=== PATIENT | female | born 1955 | race American Indian/Alaskan Native ===

== ENCOUNTER 2017-02-15 02:21 | Observation (INO) | payer MEDICARE, MEDICAID ==
[2017-02-15 02:27] VITALS: BMI 28.3
[2017-02-15] MEDS ORDERED: Morphine 2 mg/ml ISec IVP STA (02:39)
[2017-02-15] MEDS ORDERED: Sodium Chloride 0.9% 1,000 ML IV STA ×2 (02:39→05:35)
[2017-02-15] MEDS ORDERED: Pantoprazole 40 MG in Sodium Chloride 0.9% 100 ML IV STA (02:39)
--- NOTE | 2017-02-15 02:43 | ED PDOC ---
Arrival/HPI - General Chief Complaint: Abdominal Pain Time Seen by Provider: 02/15/17 02:22 Historian: Patient - History of Present Illness Narrative History of Present Illness (Text): 02/15/17 02:39 Victorina Gaitan is a 61 year old female, whose past medical history includes CVA with residual right sided weakness, who presents to the Emergency department complaining of RUQ pain for the few days with associated nausea. Patient denies any fever, chills, chest pain, shortness of breath, vomiting, diarrhea, urinary symptoms, back pain, neck pain, headache, dizziness, or any other complaints. Time/Duration: Other (few days) Symptom Onset: Gradual Symptom Course: Unchanged Activities at Onset: Rest, Light Context: Home Past Medical History - Provider Review Nursing Documentation Reviewed: Yes - Reproductive Menopause: Yes - Cardiac Hx Cardiac Disorders: No - Pulmonary Hx Respiratory Disorders: No - Neurological HX Cerebrovascular Accident: Yes (right arm contracted) - HEENT Hx HEENT Disorder: No - Renal Hx Renal Disorder: No - Endocrine/Metabolic Hx Endocrine Disorders: No - Hematological/Oncological Hx Blood Disorders: No - Integumentary Hx Dermatological Disorder: No - Musculoskeletal/Rheumatological Hx Musculoskeletal Disorders: No - Gastrointestinal Hx Gastrointestinal Disorders: No - Genitourinary/Gynecological Hx Genitourinary Disorders: No - Psychiatric Hx Psychophysiologic Disorder: No Hx Substance Use: No - Anesthesia Hx Anesthesia: No Family/Social History - Physician Review Nursing Documentation Reviewed: Yes Family/Social History: No Known Family HX Smoking Status: Never Smoked Hx Alcohol Use: No Hx Substance Use: No Allergies/Home Meds Allergies/Adverse Reactions: Allergies No Known Allergies Allergy (Verified 02/15/17 02:27) Home Medications: Home Meds Medication Instructions Recorded Confirmed Acyclovir 400 mg PO BID 02/15/17 02/15/17 Atazanavir [Reyataz] 200 mg PO BID 02/15/17 02/15/17 Docusate Sodium [Dok] 100 mg PO BID 02/15/17 02/15/17 Escitalopram [Lexapro] 10 mg PO DAILY 02/15/17 02/15/17 Gabapentin [Neurontin] 100 mg PO TID 02/15/17 02/15/17 Latanoprost 1 drop OU DAILY 02/15/17 02/15/17 Lisinopril [Zestril] 20 mg PO DAILY 02/15/17 02/15/17 Melatonin 5 mg PO HS 02/15/17 02/15/17 Truvada 200 MG-300 MG 200 mg PO DAILY 02/15/17 02/15/17 traZODone 50 mg PO DAILY 02/15/17 02/15/17 Review of Systems - Physician Review All systems were reviewed & negative as marked: Yes - Review of Systems Constitutional: Normal. absent: Fevers Eyes: Normal ENT: Normal Respiratory: Normal. absent: SOB, Cough Cardiovascular: Normal. absent: Chest Pain Gastrointestinal: Abdominal Pain, Nausea. absent: Diarrhea, Vomiting Genitourinary Female: Normal. absent: Dysuria, Frequency, Hematuria, Urine Output Changes Musculoskeletal: Normal. absent: Back Pain, Neck Pain Skin: Normal Neurological: Normal Endocrine: Normal Hemo/Lymphatic: Normal Psychiatric: Normal Physical Exam Vital Signs Reviewed: Yes Vital Signs Temp Pulse Resp BP Pulse Ox 02/15/17 05:25 77 18 144/86 98 02/15/17 02:30 98.1 F 81 17 175/83 H 99 Temperature: Afebrile Blood Pressure: Hypertensive Pulse: Regular Respiratory Rate: Normal Appearance: Positive for: Well-Appearing, Non-Toxic, Comfortable Pain Distress: None Mental Status: Positive for: Alert and Oriented X 3 - Systems Exam Head: Present: Atraumatic, Normocephalic Pupils: Present: PERRL Extroacular Muscles: Present: EOMI Conjunctiva: Present: Normal Mouth: Present: Moist Mucous Membranes Neck: Present: Normal Range of Motion Respiratory/Chest: Present: Clear to Auscultation, Good Air Exchange. No: Respiratory Distress, Accessory Muscle Use Cardiovascular: Present: Regular Rate and Rhythm, Normal S1, S2. No: Murmurs Abdomen: Present: Normal Bowel Sounds. No: Tenderness, Distention, Peritoneal Signs Back: Present: Normal Inspection Upper Extremity: Present: Normal Inspection. No: Cyanosis, Edema Lower Extremity: Present: Normal Inspection. No: Edema Neurological: Present: GCS=15, Speech Normal, Other (Right side weakness from old CVA) Skin: Present: Warm, Dry, Normal Color. No: Rashes Psychiatric: Present: Alert, Oriented x 3, Normal Insight, Normal Concentration Medical Decision Making ED Course and Treatment: 02/15/17 02:39 Impression: 61 year old female complaining of RUQ pain for the past few days. Plan: -- CT Abdomen and Pelvis w/o contrast -- EKG -- Labs, cardiac enzymes, lipase, amylase, blood cultures -- Urinalysis, urine cultures -- IV fluids -- Zofran -- Protonix -- Morphine -- Reassess and disposition Progress Notes: Reviewed EKG, NSR at [address]-segment elevations or depressions, no T-wave inversions, normal intervals. 02/15/17 04:05 Reviewed radiology, CT Abdomen and Pelvis shows: - No evidence of significant acute process on this unenhanced exam. No definite cause for pain identified. - Stool filled colon, suggestive of fecal retention/constipation. - See above for remaining findings. Fleet Enema ordered. 02/15/17 04:50 Pt denies any relief following fleet enema. Relistor ordered. 02/15/17 05:33 Pt had a large bowel movement after medication, however she is still experiencing abdominal pain. Case was discussed with Dr. Srinivasan, covering for Dr. Early, who is aware and agrees with plan. Pt will go to [facility] observation for abdominal pain under Dr. Early's service. - Lab Interpretations Microbiology Results: Microbiology Results 02/15/17 03:15 Blood-Venous Blood Culture - Preliminary NO GROWTH AFTER 24 HOURS 02/15/17 03:00 Blood-Venous Blood Culture - Preliminary NO GROWTH AFTER 24 HOURS Lab Results: 02/15/17 03:00 02/15/17 03:00 Lab Results 02/15/17 03:00: Sodium 141, Potassium 3.3 L, Chloride 106, Carbon Dioxide 28, Anion Gap 10, BUN 21, Creatinine 0.7, Est GFR ( Amer) > 60, Est GFR (Non- Af Amer) > 60, Random Glucose 111 H, Calcium 8.8, Total Bilirubin 0.6, AST 112 H , ALT 110 H, Alkaline Phosphatase 112, Lactate Dehydrogenase 475, Total Creatine Kinase 67, Troponin I < 0.01, Total Protein 8.5 H, Albumin 3.8, Globulin 4.7, Albumin/Globulin Ratio 0.8 L, Amylase 203 H, Lipase 198 02/15/17 03:00: PT 11.2, INR 1.04, APTT 28.0 02/15/17 03:00: WBC 7.9, RBC 4.17, Hgb 12.5, Hct 34.2 L, MCV 82.0, MCH 30.0, MCHC 36.5, RDW 15.6 H, Plt Count 237, MPV 10.1, Gran % 45.1 L, Lymph % (Auto) 47.0 H, [place] % (Auto) 5.6, Eos % (Auto) 1.7, Baso % (Auto) 0.6, Gran # 3.55, Lymph # 3.7 H, [place] # 0.4, Eos # 0.1, Baso # 0.05 I have reviewed the lab results: Yes - RAD Interpretation Narrative RAD Interpretations (Text): CT Abdomen and Pelvis shows: LOWER THORAX: Moderate to large hiatal hernia, containing the gastric fundus. ABDOMEN: LIVER: The liver has a mildly lobulated contour, which could be due to mild cirrhotic change. Recommend clinical correlation. No acute abnormality of the liver identified. GALLBLADDER AND BILE DUCTS: Cholecystectomy clips. Mild biliary ductal dilatation, most likely related to the post cholecystectomy state. No radiopaque common bile duct stones are visualized. Recommend correlation with LFTs as clinically indicated. PANCREAS: No CT evidence of acute pancreatitis. SPLEEN: No acute abnormality of the spleen identified. ADRENALS: No acute abnormality of the adrenal glands identified. KIDNEYS AND URETERS: No acute abnormality of the kidneys seen. STOMACH AND BOWEL Retained stool noted throughout the colon. Otherwise, no significant abnormality of the bowel is identified. No evidence of bowel obstruction. No evidence of fecal impaction. APPENDIX: Appendix is seen, and is within normal limits in appearance. Negative. PELVIS: BLADDER: No acute abnormality of the bladder identified. REPRODUCTIVE: Uterus is surgically absent. No evidence of large adnexal masses. ABDOMEN and PELVIS: INTRAPERITONEAL SPACE: No evidence of free intraperitoneal air or fluid. BONES/JOINTS: Bony structures appear demineralized. No acute fractures or other acute bony abnormality noted. SOFT TISSUES: Small umbilical hernia, containing only fat. VASCULATURE: No evidence of abdominal aortic aneurysm. No evidence of periaortic hemorrhage. LYMPH NODES: No evidence of diffuse lymphadenopathy. IMPRESSION: - No evidence of significant acute process on this unenhanced exam. No definite cause for pain identified. - Stool filled colon, suggestive of fecal retention/constipation. - See above for remaining findings. Radiology Orders: 02/15/17 02:39 ABD & PELVIS W/O PO OR IV CONT [CT] Stat Inspector Aide: Radiologist - EKG Interpretation Interpreted by ED Physician: Yes Type: 12 lead EKG - Medication Orders Current Medication Orders: Bisacodyl (Dulcolax) 10 mg RC DAILY [facility] Enoxaparin Sodium (Lovenox) 40 mg SC DAILY [facility] PRN Reason: Protocol Ceftriaxone Sodium (Rocephin 1 Gram Ivpb) 1 gm in 100 mls @ 100 mls/hr IVPB DAILY [facility] PRN Reason: Protocol Last Admin: 02/15/17 16:20 Dose: 100 mls/hr Lisinopril (Zestril) 20 mg PO DAILY [facility] Last Admin: 02/15/17 16:43 Dose: 20 mg Pantoprazole Sodium (Protonix Ec Tab) 40 mg PO 0630 [facility] Last Admin: 02/16/17 05:44 Dose: 40 mg Polyethylene Glycol (Miralax) 17 gm PO DAILY [facility] Last Admin: 02/15/17 16:20 Dose: 17 gm Discontinued Medications Acetaminophen (Tylenol 325mg Tab) 650 mg PO STAT STA Stop: 02/15/17 23:52 Last Admin: 02/16/17 00:05 Dose: 650 mg Pantoprazole Sodium 40 mg/ (Sodium Chloride) 100 mls @ 400 mls/hr IV STAT STA Stop: 02/15/17 02:53 Last Admin: 02/15/17 03:04 Dose: 400 mls/hr Sodium Chloride (Sodium Chloride 0.9%) 1,000 mls @ 100 mls/hr IV .Q10H STA Stop: 02/15/17 12:38 Last Admin: 02/15/17 03:04 Dose: 100 mls/hr Sodium Chloride (Sodium Chloride 0.9%) 1,000 mls @ 80 mls/hr IV .[id number] STA Stop: 02/15/17 18:04 Last Admin: 02/15/17 06:07 Dose: 80 mls/hr Methylnaltrexone [place] (Relistor) 8 mg SC ONCE ONE Stop: 02/15/17 04:53 Last Admin: 02/15/17 04:59 Dose: 8 mg Morphine Sulfate (Morphine) 2 mg IVP STAT STA Stop: 02/15/17 02:40 Last Admin: 02/15/17 03:05 Dose: 2 mg Re-Assess: MAR Pain Assessment Document 02/15/17 04:05 RD (Rec: 02/15/17 04:55 RD [id number]) Pain Reassessment Is this a pain reassessment? No Sleep Is patient sleeping during reassessment? No Presence of Pain Presence of Pain Yes Ondansetron HCl (Zofran Inj) 4 mg IVP STAT STA Stop: 02/15/17 02:40 Last Admin: 02/15/17 03:04 Dose: 4 mg Potassium Chloride (K-Dur 20 Meq Er Tab) 40 meq PO STAT STA Stop: 02/15/17 03:46 Last Admin: 02/15/17 04:00 Dose: 40 meq Sodium Phosphate (Fleet Enema) 135 ml RC STAT STA Stop: 02/15/17 04:06 Last Admin: 02/15/17 04:21 Dose: 135 ml Zolpidem Tartrate (Ambien) 5 mg PO STAT STA PRN Reason: Protocol Stop: 02/15/17 23:52 Last Admin: 02/16/17 00:05 Dose: 5 mg Re-Assess: Reassess Psych Meds Document 02/16/17 01:05 PILAR (Rec: 02/16/17 05:44 MJ [id number]) Reassess Psych Med Effective - Scribe Statement The provider has reviewed the documentation as recorded by the Scribe Gianna Putnam All medical record entries made by the Scribe were at my direction and personally dictated by me. I have reviewed the chart and agree that the record accurately reflects my personal performance of the history, physical exam, medical decision making, and the department course for this patient. I have also personally directed, reviewed, and agree with the discharge instructions and disposition. Disposition/Present on Arrival - Present on Arrival Any Indicators Present on Arrival: No History of DVT/PE: No History of Uncontrolled Diabetes: No Urinary Catheter: No History of Decub. Ulcer: No History Surgical Site Infection Following: None - Disposition Have Diagnosis and Disposition been Completed?: Yes Diagnosis: Abdominal pain Disposition: HOSPITALIZED Disposition Time: 05:35 Condition: GOOD
[2017-02-15 03:08] LABS: ADD MANUAL DIFF? NO
[2017-02-15 03:25] LABS: BASO # 0.05 K/mm3 (0.0-2.0); BASO % 0.6 % (0.0-3.0); EOS # 0.1 (0.0-0.7); EOS % 1.7 % (1.5-5.0); GRAN # 3.55 (1.4-6.5); GRAN % 45.1 % (50.0-68.0); HEMATOCRIT 34.2 % (36.0-48.0); LYMPH # 3.7 (1.2-3.4); MEAN CORPUSCULAR HGB CONC 36.5 g/dl (31.0-37.0); MEAN PLATELET VOLUME 10.1 fl (7.0-11.0); MONO # 0.4 (0.1-0.6); MONO % 5.6 % (1.0-6.0); PLATELET COUNT 237 10^3/uL (120.0-450.0); RED CELL DISTRIBUTION WIDTH 15.6 % (11.5-14.5); WHITE BLOOD COUNT 7.9 10^3/ul (4.5-11.0)
[2017-02-15 03:30] LABS: INR 1.04 (0.93-1.08)
[2017-02-15 03:37] LABS: ALB/GLOB RATIO 0.8 (1.1-1.8); ALKALINE PHOSPHATASE 112 U/L (38-133); ALT/SGPT 110 U/L (7-56); AMYLASE 203 U/L (35-125); AST/SGOT 112 U/L (15-39); BILIRUBIN,TOTAL 0.6 mg/dL (0.2-1.3); BLOOD UREA NITROGEN 21 mg/dL (7-21); CALCIUM 8.8 mg/dL (8.4-10.5); CARBON DIOXIDE 28 mmol/L (21-33); CHLORIDE 106 mmol/L (98-107); GFR AFRICAN-AMERICAN > 60; GLUCOSE,RANDOM 111 mg/dL (70-110); LIPASE 198 U/L (23-300); POTASSIUM 3.3 mmol/L (3.6-5.0); TOTAL PROTEIN 8.5 g/dL (5.8-8.3)
[2017-02-15 03:43] LABS: SODIUM 141 mmol/L (132-148)
[2017-02-15] MEDS ORDERED: Potassium Chloride 20 mEq ER Tab PO STA (03:45)
[2017-02-15 04:16] LABS: TROPONIN I < 0.01 ng/mL
[2017-02-15 06:41] LABS: URINE BILIRUBIN NEGATIVE (NEGATIVE); URINE BLOOD TRACE-INTACT (NEGATIVE); URINE GLUCOSE (UA) NEGATIVE (NEGATIVE); URINE KETONE NEGATIVE (NEGATIVE); URINE LEUKOCYTE ESTERASE MODERATE Leu/uL (NEGATIVE); URINE PROTEIN NEGATIVE mg/dL (<30 mg/dL)
[2017-02-15 06:43] LABS: URINE APPEARANCE SL CLOUDY (CLEAR); URINE COLOR YELLOW (YELLOW)
[2017-02-15 06:57] LABS: URINE CALCIUM OXALATE CRYSTALS MOD /hpf; URINE WBC 15 - 20 /hpf (0-6)
[2017-02-15 06:58] LABS: URINE BACTERIA MANY (NEG)
--- NOTE | 2017-02-15 10:53 | CT ---
PROCEDURE: CT Abdomen and Pelvis without intravenous contrast HISTORY: abd pain COMPARISON: None. TECHNIQUE: Without contrast.. Contrast Dose: Radiation dose: Total exam DLP = 556 mGy-cm. This CT exam was performed using one or more of the following dose reduction techniques: Automated exposure control, adjustment of the mA and/or kV according to patient size, and/or use of iterative reconstruction technique. FINDINGS: LOWER THORAX: Large hiatal hernia LIVER: Unremarkable. No gross lesion or ductal dilatation. GALLBLADDER AND BILE DUCTS: Gallbladder removed with mild associated dilatation of the common duct PANCREAS: Unremarkable. No gross lesion or ductal dilatation. SPLEEN: Unremarkable. ADRENALS: Unremarkable. No mass. KIDNEYS AND URETERS: Unremarkable. No hydronephrosis. No solid mass. VASCULATURE: Unremarkable. No aortic aneurysm. BOWEL: Unremarkable. No obstruction. No gross mural thickening. There is moderate constipation APPENDIX: Unremarkable. Normal appendix. PERITONEUM: Unremarkable. No free fluid. No free air. LYMPH NODES: Unremarkable. No enlarged lymph nodes. BLADDER: Unremarkable. REPRODUCTIVE: Unremarkable. BONES: No acute fracture. OTHER FINDINGS: None. IMPRESSION: Moderate constipation. No acute intra-abdominal findings
--- NOTE | 2017-02-15 12:07 | CARD ---
APPROVED REPORT EKG Measurement Heart [id number] <Conclusion> Normal sinus rhythm Normal ECG
--- NOTE | 2017-02-15 16:10 | CP.PCM.CON ---
<UsmanJerry - Last Filed: 02/15/17 16:07> History of Present Illness - History of Present Illness History of Present Illness: GI for Dr. Maria Dolores Juarezbarrett Gaitan is a 61 year old female, whose past medical history includes CVA with residual right sided weakness, who presents to [facility] [place] complaining of abd pain for the few days with associated nausea. Pain in vague and diffuse. Patient denies any fever, chills, chest pain, shortness of breath, vomiting, diarrhea, urinary symptoms, back pain, neck pain, headache, dizziness, or any other complaints. UA was + for nitrate and Leuk esterase. labs were unremarkable except mildly elevatad LFT. CT shows constipation. Pt received enema and pt had BM. Review of Systems - Review of Systems Review of Systems: See HPI Past Patient History - Past Social History Smoking Status: Never Smoked - CARDIAC Hx Cardiac Disorders: No - PULMONARY Hx Respiratory Disorders: No - NEUROLOGICAL HX Cerebrovascular Accident: Yes (right arm contracted) - HEENT Hx HEENT Problems: No - RENAL Hx Chronic Kidney Disease: No - ENDOCRINE/METABOLIC Hx Endocrine Disorders: No - HEMATOLOGICAL/ONCOLOGICAL Hx Blood Disorders: No - INTEGUMENTARY Hx Dermatological Problems: No - MUSCULOSKELETAL/RHEUMATOLOGICAL Hx Falls: No - GASTROINTESTINAL Hx Gastrointestinal Disorders: No - GENITOURINARY/GYNECOLOGICAL Hx Genitourinary Disorders: No - PSYCHIATRIC Hx Psychophysiologic Disorder: No - SURGICAL HISTORY Hx Surgeries: No - ANESTHESIA Hx Anesthesia: No Meds Allergies/Adverse Reactions: Allergies Allergy/AdvReac Type Severity Reaction Status Date / Time No Known Allergies Allergy Verified 02/18/17 23:15 - Medications Medications: Current Medications Sodium Chloride (Sodium Chloride 0.9%) 1,000 mls @ 80 mls/hr IV .[id number] STA Stop: 02/15/17 18:04 Last Admin: 02/15/17 06:07 Dose: 80 mls/hr Ceftriaxone Sodium (Rocephin 1 Gram Ivpb) 1 gm in 100 mls @ 100 mls/hr IVPB DAILY [facility] PRN Reason: Protocol Polyethylene Glycol (Miralax) 17 gm PO DAILY [facility] Physical Exam - Constitutional Appears: No Acute Distress - Head Exam Head Exam: ATRAUMATIC, NORMAL INSPECTION, NORMOCEPHALIC - Eye Exam Eye Exam: EOMI, Normal appearance, PERRL Pupil Exam: NORMAL ACCOMODATION, PERRL - ENT Exam ENT Exam: Mucous Membranes Moist, Normal Exam - Neck Exam Neck exam: Positive for: Normal Inspection - Respiratory Exam Respiratory Exam: Clear to Auscultation Bilateral, NORMAL BREATHING PATTERN - Cardiovascular Exam Cardiovascular Exam: REGULAR RHYTHM - GI/Abdominal Exam GI & Abdominal Exam: Normal Bowel Sounds, Soft, Tenderness. absent: Distended, Firm, Guarding, Hernia, Rebound, Rigid Additional comments: Diffuse TTP. - Extremities Exam Extremities exam: Positive for: normal inspection - Back Exam Back exam: NORMAL INSPECTION - Neurological Exam Neurological exam: Alert, CN II-XII Intact, Normal Gait, Oriented x3, Reflexes Normal - Psychiatric Exam Psychiatric exam: Normal Affect, Normal Mood - Skin Skin Exam: Dry, Intact, Normal Color, Warm Results - Vital Signs Recent Vital Signs: Last Vital Signs Temp 97.4 F L 02/15/17 14:07 Pulse 72 02/15/17 14:07 Resp 18 02/15/17 14:07 BP 151/99 H 02/15/17 14:07 Pulse Ox 97 02/15/17 07:16 - Labs Result Diagrams: 02/15/17 03:00 02/15/17 03:00 Labs: Laboratory Results - last 24 hr 02/15/17 06:15 Urine Color Yellow Urine Appearance Sl cloudy Urine pH 6.0 Ur Specific [place] 1.025 Urine Protein Negative Urine Glucose (UA) Negative Urine Ketones Negative Urine Blood Trace-intact H Urine Nitrate Positive H Urine Bilirubin Negative Urine Urobilinogen 4.0 H Ur Leukocyte Esterase Moderate H Urine RBC 2 - 5 Urine WBC 15 - 20 Ur Epithelial Cells 3 - 4 Calcium Oxalate Crystal Mod Urine Bacteria Many Urine Other Fiber Assessment & Plan - Assessment and Plan (Free Text) Assessment: ABd pain 2/2 constipation and UTI -RElister given -Fleet enema given : Pt had BM. Abd soft ND -Daily Miralax -Urine Cx -Ceftriaxone -CLD We will continue to follow MICH Whitten <Curtis Whitten V - Last Filed: 04/02/17 19:42> Results - Vital Signs Recent Vital Signs: Last Vital Signs Temp 98.0 F 02/17/17 07:19 Pulse 85 02/17/17 09:44 Resp 18 02/17/17 07:19 BP 159/89 H 02/17/17 09:44 Pulse Ox 100 02/17/17 07:19 - Labs Result Diagrams: 02/15/17 03:00 02/16/17 06:40 Assessment & Plan - Assessment and Plan (Free Text) Assessment: Addendum to the GI consult note of Dr. Mary. Patient was seen, examined and the chart reviewed. Patient on abdominal exam with tenderness, no rebound or guarding. S/p Relistor and enema, had BM, will recommend to continue Miralax, on Iv antibiotics for UTI, will make further recommendation based upon clinical course.
[2017-02-15] MEDS: POLYETHYLENE GLYCOL 3350 17 GM/Dose PACKET PO SCH (16:20)
[2017-02-15] MEDS: cefTRIAXone 1 gm 1 GM/100 ML BAG IVPB SCH (16:20)
--- NOTE | 2017-02-15 23:44 | HP ---
For Dr. Early. REASON FOR ADMISSION: Abdominal pain associated with nausea and vomiting. HISTORY OF PRESENT ILLNESS: This is a 61-year-old female with past medical history significant for C [facility], with nausea, abdominal pain, nonspecific chest pain and also constipation. No dysuria, no leg pa in or leg swelling. PAST MEDICAL HISTORY: CVA, chronic constipation. ALLERGIES: None known. SOCIAL HISTORY: Nonsmoker, nondrinker. FAMILY HISTORY: No significant cardiopulmonary disease reported. MEDICATIONS: Presently, she is on MiraLax 17 grams daily, Rocephin 1 gram daily, Zestril 20 mg daily . REVIEW OF SYSTEMS: No headache, no rhinitis. Complaining about chest discomfort, nausea, abdominal pain, admitted to have snoring, daytime sleepy. No leg pain or leg swelling. PHYSICAL EXAMINATION: GENERAL: She is lying flat in no acute distress. VITAL SIGNS: Temperature is 98, heart rate 60, respiratory rate is 20, blood pressure 183/96, pulse ox 94% on room air. HEENT: Small oral cavity. NECK: Supple, no JVD. LUNGS: Have scattered few rhonchi. Overall, fair airflow. HEART: S1, S2. ABDOMEN: Mild epigastric tenderness. EXTREMITIES: There is no edema. NEUROLOGIC: Awake, alert, follows simple commands, has a right upper extremity contracture. LABORATORY DATA: Shows hemoglobin 12.5, hematocrit 34.2, WBC 7.9, platelets 237. INR 1.04, PTT is 2 8. Sodium 141, potassium 3.3, chloride 106, bicarbonate 28, BUN 21, creatinine is 0.7, glucose 111, calcium 8.8, total bilirubin 0.6, AST 112, ALT 110, alkaline phosphatase is 112. Troponin less than 0.01, total protein 8.5, albumin 3.8, amylase 203, lipase is 198. Urinalysis shows trace blood, posi tive nitrites, WBC 15-20. Has a CAT scan of the abdomen and pelvis done that shows moderate constipa tion, no acute intra-abdominal findings. ASSESSMENT AND PLAN: History of cerebrovascular accident, chronic constipation, hypertension, chest discomfort, rule out myocardial infarction. May have sleep apnea syndrome. Also evaluate her lipase , rule out pancreatitis. Given Rocephin and MiraLax. We will give her Dulcolax daily basis. We vineet l get EKG and cardiac enzymes. Gastric prophylaxis, deep venous thrombosis prophylaxis. Thank you. Arvind Srinivasan MD cc: [phone] TT: 02/15/2017 23:43:40 mn
--- NOTE | 2017-02-15 23:59 | CP.PCM.PN ---
Subjective - Date & Time of Evaluation Date of Evaluation: 02/15/17 Time of Evaluation: 23:52 - Subjective Subjective: S:Patient was seen at bedside because she requested a sleeping pill . Has no other complaints. Denies sob, chest pain , headache. O: Last Vital Signs 3 Temp 97.3 F L 02/15/17 16:00 Pulse 60 02/15/17 16:00 Resp 18 02/15/17 16:00 BP 183/96 H 02/15/17 16:43 Pulse Ox 94 L 02/15/17 16:00 Awake, alert, not in distress. LUNGS:Normal breathing pattern. A:Adjustment Insomnia. P:Ambien 5 mg PO x 1. Objective - Vital Signs/Intake and Output Vital Signs (last 24 hours): Temp Pulse Resp BP Pulse Ox 97.3 F L 60 18 183/96 H 94 L 02/15/17 16:00 02/15/17 16:00 02/15/17 16:00 02/15/17 16:43 02/15/17 16:00 Intake and Output: 02/15/17 02/16/17 18:59 06:59 Intake Total 1000 Balance 1000 - Medications Medications: Current Medications Bisacodyl (Dulcolax) 10 mg RC DAILY [facility] Enoxaparin Sodium (Lovenox) 40 mg SC DAILY [facility] PRN Reason: Protocol Ceftriaxone Sodium (Rocephin 1 Gram Ivpb) 1 gm in 100 mls @ 100 mls/hr IVPB DAILY [facility] PRN Reason: Protocol Last Admin: 02/15/17 16:20 Dose: 100 mls/hr Lisinopril (Zestril) 20 mg PO DAILY [facility] Last Admin: 02/15/17 16:43 Dose: 20 mg Pantoprazole Sodium (Protonix Ec Tab) 40 mg PO 0630 [facility] Polyethylene Glycol (Miralax) 17 gm PO DAILY [facility] Last Admin: 02/15/17 16:20 Dose: 17 gm - Labs Labs: PT 11.2 Seconds (9.9-11.8) 02/15/17 03:00 INR 1.04 (0.93-1.08) 02/15/17 03:00 APTT 28.0 Seconds (23.7-30.8) 02/15/17 03:00
[2017-02-16] MEDS: Pantoprazole 40 mg EC Tab PO SCH (05:44)
[2017-02-16 07:23] LABS: ALB/GLOB RATIO 0.7 (1.1-1.8); ALKALINE PHOSPHATASE 99 U/L (38-133); ALT/SGPT 97 U/L (7-56); AST/SGOT 84 U/L (15-39); BILIRUBIN,TOTAL 0.5 mg/dL (0.2-1.3); BLOOD UREA NITROGEN 13 mg/dL (7-21); CALCIUM 8.8 mg/dL (8.4-10.5); CARBON DIOXIDE 26 mmol/L (21-33); CHLORIDE 106 mmol/L (98-107); GFR AFRICAN-AMERICAN > 60; GLUCOSE,RANDOM 87 mg/dL (70-110); POTASSIUM 3.6 mmol/L (3.6-5.0); SODIUM 139 mmol/L (132-148); TOTAL PROTEIN 7.9 g/dL (5.8-8.3)
[2017-02-16 07:36] LABS: TROPONIN I < 0.01 ng/mL
[2017-02-16] MEDS: Enoxaparin 40 mg Syringe SC SCH (10:04)
[2017-02-16] MEDS: POLYETHYLENE GLYCOL 3350 17 GM/Dose PACKET PO SCH (10:04)
[2017-02-16] MEDS: cefTRIAXone 1 gm 1 GM/100 ML BAG IVPB SCH (10:04)
[2017-02-16 15:49] VITALS: RESP 18
[2017-02-16] MEDS ORDERED: Sodium Chloride 0.9% 1,000 ML IV SCH (22:15)
--- NOTE | 2017-02-16 22:45 | PN ---
DATE: 02/16/2017 REFERRING PHYSICIAN: Dr. Early. SUBJECTIVE: She is lying in the bed, head at 45 degrees, that she needed to go on the regular diet. Still has some epigastric discomfort of mild cough. Admits to have snoring, daytime sleepy and tired. No leg pain or leg swelling. OBJECTIVE: GENERAL: In no acute distress. VITAL SIGNS: Temp is 98, heart rate is 57, respiratory rate is 18, blood pressure 150/90, pulse ox 9 8% on room air. HEENT: Moist mucous membrane. Crowded airway. NECK: Supple. No JVD. LUNGS: Fair airflow with rhonchi. HEART: S1, S2. ABDOMEN: Mild epigastric pain, soft. EXTREMITIES: No edema. NEUROLOGIC: Awake, alert, follows simple commands. MEDICATIONS: She is on Dulcolax 10 mg rectally daily, Lovenox 40 mg daily, MiraLAX 17 g daily, Win nix 40 mg daily, Rocephin 1 g daily, Zestril 20 mg daily. LABORATORY DATA: Reviewed. Sodium 139, potassium 3.6, chloride 106, bicarbonate 26, BUN 13, creatin ine 0.9, glucose 87, calcium 8.8. AST is 84, ALT 97, alk phos is 99. Troponin less than 0.01. [place] min 3.3. Urine has gram-negative rods. IMPRESSION AND PLAN: History of cerebrovascular accident in the remote past, chronic constipation, h ypertension, nonspecific chest discomfort, may have a sleep apnea syndrome, history of gastroparesis, and cold symptoms. Case discussed with Dr. Whitten in detail. In the past she had a normal CAT sc an of the abdomen with no lymph nodes. Also, with history of hepatitis C. Has a urinary tra ct infection, already on Rocephin. Continue bronchodilator. Keep head 45 degrees. Sleep apnea prec aution. May add as tolerated. Thank you and will follow with you. Arvind Srinivasan MD cc: [id number] TT: 02/16/2017 22:45:15 Confirmation # [id number] Dictation # [id number] dn
--- NOTE | 2017-02-16 22:58 | CP.PCM.PN ---
Subjective - Date & Time of Evaluation Date of Evaluation: 02/16/17 Time of Evaluation: 22:55 - Subjective Subjective: S:Patient was seen at bedside because she requested a sleeping pill. She received ambien 5 mg PO yesterday which seems to have helped her. She has no other complaints now. Medical record was reviewed. O:VSS. Last Vital Signs 3 Temp 97.9 F 02/16/17 15:48 Pulse 63 02/16/17 15:58 Resp 18 02/16/17 15:48 BP 155/90 H 02/16/17 15:58 Pulse Ox 98 02/16/17 15:48 Awake, alert, not in distress. LUNGS: Normal breathing pattern.. A:Adjustment insomnia. P: Ambien 5 mg PO x 1. Objective - Vital Signs/Intake and Output Vital Signs (last 24 hours): Temp Pulse Resp BP Pulse Ox 97.9 F 63 18 155/90 H 98 02/16/17 15:48 02/16/17 15:58 02/16/17 15:48 02/16/17 15:58 02/16/17 15:48 Intake and Output: 02/16/17 02/17/17 18:59 06:59 Intake Total 120 480 Output Total 1 Balance 120 479 - Medications Medications: Current Medications Bisacodyl (Dulcolax) 10 mg RC DAILY [facility] Last Admin: 02/16/17 10:04 Dose: Not Given Enoxaparin Sodium (Lovenox) 40 mg SC DAILY [facility] PRN Reason: Protocol Last Admin: 02/16/17 10:04 Dose: 40 mg Ceftriaxone Sodium (Rocephin 1 Gram Ivpb) 1 gm in 100 mls @ 100 mls/hr IVPB DAILY [facility] PRN Reason: Protocol Last Admin: 02/16/17 10:04 Dose: 100 mls/hr Sodium Chloride (Sodium Chloride 0.9%) 1,000 mls @ 100 mls/hr IV .Q10H [facility] Lisinopril (Zestril) 20 mg PO DAILY [facility] Last Admin: 02/16/17 15:58 Dose: 20 mg Pantoprazole Sodium (Protonix Ec Tab) 40 mg PO 0630 [facility] Last Admin: 02/16/17 05:44 Dose: 40 mg Polyethylene Glycol (Miralax) 17 gm PO DAILY [facility] Last Admin: 02/16/17 10:04 Dose: Not Given Zolpidem Tartrate (Ambien) 5 mg PO STAT [facility] PRN Reason: Protocol Stop: 02/16/17 22:55 - Labs Labs: 02/16/17 06:40 PT 11.2 Seconds (9.9-11.8) 02/15/17 03:00 INR 1.04 (0.93-1.08) 02/15/17 03:00 APTT 28.0 Seconds (23.7-30.8) 02/15/17 03:00
--- NOTE | 2017-02-16 23:29 | PN ---
DATE: 02/16/2017 SUBJECTIVE: The patient was seen and evaluated earlier today. The patient was hungry and wants to eat solid food. Denies any abdominal pain. Now, the patient did have a large bowel movement after the enema. PHYSICAL EXAMINATION: VITAL SIGNS: Temperature is 97.9, pulse 63, blood pressure 155/90. HEENT: Atraumatic, anicteric. NECK: Supple. HEART: S1, S2 heard. LUNGS: Bilateral air entry present. ABDOMEN: Soft. There was no tenderness. EXTREMITIES: No cyanosis, no clubbing. LABORATORY DATA: Hemoglobin 12.5, hematocrit 34.2, WBC 7.9, platelets 223, BUN 30, creatinine 0.9. IMPRESSION: This 61-year-old patient is status post CVA with right-sided weakness, admitted with abdominal pain, admitted with abdominal pain, nausea. The patient has a urinalysis with more than 100,000 gram-negative rods. 1. Abdominal pain. 2. Urinary tract infection. 3. Constipation. 4. Comorbidities include status post cerebrovascular accident, status post cerebrovascular accident, depression. RECOMMENDATIONS: 1. Followup of the cultures, advance the diet. 2. Continue the antibiotics. Thank you very much for allowing us to participate in the care of the patient. Curtis Whitten MD cc: [id number] TT: 02/16/2017 23:29:04 Confirmation # [id number] Dictation # [id number] ray [facility]
[2017-02-17 07:20] VITALS: TEMP 98; O2SAT 100
[2017-02-17] MEDS: Pantoprazole 40 mg EC Tab PO SCH (07:42)
--- NOTE | 2017-02-17 08:14 | PN ---
DATE: 02/16/2017 A 61-year-old female who came in with abdominal pain. The patient seen by GI consult. Currently on IV antibiotic for UTI. PHYSICAL EXAMINATION: VITAL SIGNS: Her temperature is 97.7, heart rate 54, blood pressure is 150/90, respirations 18, satu rating 90% on room air. HEAD AND NECK: Normal. No JVD, no thyromegaly. CHEST: Clear, good air entry. CARDIAC: First sound, second sound normal. ABDOMEN: There is tenderness mainly on the left lower quadrant. EXTREMITIES: No edema. The patient has right-side hemiplegia with right elbow flexure posture. NEUROLOGIC: She is alert, awake. She follows simple commands. She has right lower and right upper extremity weakness, hemiplegia. LABORATORY DATA: White count 7.9, hemoglobin 12.____, hematocrit 34.2, platelets 237. Chemistry: S odium 139, potassium 3.6, chloride 106, bicarb 26, BUN 13, creatinine 0.9. Liver function test is no rmal. AST 84, ALT 97, alk phos is normal. Troponin is negative. Total protein 7.9. Urine is 15-20 white blood cells and urine red blood cells 2-5. PT and PTT are normal. The patient had a CT abdomen and pelvis which shows chronic constipation. IMPRESSION AND PLAN: 1. Abdominal pain. Continue laxatives. Will discuss further with Dr. Whitten about her pain and t enderness in the left lower quadrants. 2. Acute urinary tract infection, Escherichia coli. Continue Rocephin. 3. History of right hemiplegia. 4. Cerebrovascular accident. 5. ____, chronic PLAN: Continue IV antibiotic. Continue Protonix, Lovenox, MiraLax, Dulcolax, IV fluid, Zestril. Fo llow up clinically. Harsh Early MD cc: 223 TT: 02/17/2017 08:13:53 Confirmation # [id number] Dictation # [id number] mn
[2017-02-17] MEDS: cefTRIAXone 1 gm 1 GM/100 ML BAG IVPB SCH (09:44)
[2017-02-17] MEDS: POLYETHYLENE GLYCOL 3350 17 GM/Dose PACKET PO SCH (09:44)
[2017-02-17] MEDS: Enoxaparin 40 mg Syringe SC SCH (09:45)
[2017-02-17 09:48] VITALS: BP 159/89; PULSE 85
--- NOTE | 2017-02-17 10:38 | CP.PCM.PN ---
Subjective - Date & Time of Evaluation Date of Evaluation: 02/17/17 Time of Evaluation: 10:37 - Subjective Subjective: pt needs angiocath insertion . Objective - Vital Signs/Intake and Output Vital Signs (last 24 hours): Temp Pulse Resp BP Pulse Ox 98.0 F 85 18 159/89 H 100 02/17/17 07:19 02/17/17 09:44 02/17/17 07:19 02/17/17 09:44 02/17/17 07:19 Intake and Output: 02/17/17 02/17/17 06:59 18:59 Intake Total 480 Output Total 1 Balance 479 - Medications Medications: Current Medications Bisacodyl (Dulcolax) 10 mg RC DAILY [facility] Last Admin: 02/17/17 09:45 Dose: 10 mg Enoxaparin Sodium (Lovenox) 40 mg SC DAILY [facility] PRN Reason: Protocol Last Admin: 02/17/17 09:45 Dose: 40 mg Ceftriaxone Sodium (Rocephin 1 Gram Ivpb) 1 gm in 100 mls @ 100 mls/hr IVPB DAILY [facility] PRN Reason: Protocol Last Admin: 02/17/17 09:44 Dose: 100 mls/hr Sodium Chloride (Sodium Chloride 0.9%) 1,000 mls @ 100 mls/hr IV .Q10H [facility] Lisinopril (Zestril) 20 mg PO DAILY [facility] Last Admin: 02/17/17 09:44 Dose: 20 mg Pantoprazole Sodium (Protonix Ec Tab) 40 mg PO 0630 [facility] Last Admin: 02/17/17 07:42 Dose: Not Given Polyethylene Glycol (Miralax) 17 gm PO DAILY [facility] Last Admin: 02/17/17 09:44 Dose: 17 gm - Labs Labs: 02/16/17 06:40 PT 11.2 Seconds (9.9-11.8) 02/15/17 03:00 INR 1.04 (0.93-1.08) 02/15/17 03:00 APTT 28.0 Seconds (23.7-30.8) 02/15/17 03:00 Assessment and Plan - Assessment and Plan (Free Text) Assessment: 22 guage angiocath inserted in left hand.
--- NOTE | 2017-02-17 12:12 | PN ---
DATE: 02/17/2017 Seen and examined at the bedside late this morning. The patient still has some abdominal pain, but s he is moving her bowels. No nausea or vomiting. No reports of any acute overnight events. VITAL SIGNS: Temperature is 98.0, blood pressure 159/89, pulse is 85, respirations 18, 100% on room air. LABORATORY DATA: No new labs are noted for today. PHYSICAL EXAMINATION: HEENT: Sclerae are nonicteric. NECK: Supple. CARDIAC: S1, S2. LUNGS: With decreased breath sounds but good air entry. No rales or wheeze. ABDOMEN: With bowel sounds. Soft. She did have some tenderness to midabdomen. No rebound or guard ing. EXTREMITIES: No edema. ASSESSMENT: A 61-year-old female with cerebrovascular accident and right-sided weakness who came wit h abdominal pain and nausea. The patient with constipation and also with urinary tract infection. PLAN: The patient is on MiraLax daily. She is getting Dulcolax. She is also on IV antibiotics of c eftriaxone, on Lovenox and PPI. History of hypertension, is on lisinopril. Continue the heart healt hy diet as tolerated. Will monitor. The patient was seen and case discussed with Dr. Whitten. Gill GRAHAM cc: [id number] TT: 02/17/2017 12:12:00 Confirmation # [id number] Dictation # [id number] ray
--- NOTE | 2017-02-18 01:29 | CARD ---
APPROVED REPORT EXAM: Two-dimensional and M-mode echocardiogram with Doppler and color Doppler. INDICATION Pulmonary Hypertention 2D DIMENSIONS Left Atrium (2D)4.2 (1.6-4.0cm)IVSd1.1 (0.7-1.1cm) LVDd3.6 (3.9-5.9cm)LVOT Diameter1.8 (1.8-2.4cm) PWd1.2 (0.7-1.1cm)LVDs2.5 (2.5-4.0cm) FS (%) 32.7 %LVEF (%)62.1 (>50%) M-Mode DIMENSIONS Aortic Root2.90 (2.2-3.7cm)Aortic Cusp Exc.1.40 (1.5-2.0cm) Aortic Valve AoV Peak Wzgxxbju241.0cm/sAoV VTI36.8cmAO Peak GR.18mmHg LVOT Peak Igarmckw434.0cm/sLVOT VTI24.30cmAO Mean GR.11mmHg SAQIB (VMAX)1.95pa0LNC (VTI)1.68cm2 Mitral Valve MV E Ziyberju88.5cm/sMV A Quxwakrg675.0cm/sE/A ratio0.6 TDI Lateral E' Peak V7.60cm/sMedial E' Peak V4.48cm/sE/Lateral E'9.0 E/Medial E'15.3 Pulmonary Valve PV Peak Mauihkwp35.3cm/sPV Peak Grad.2mmHg Tricuspid Valve TR Peak Exggzciw710dc/sRAP RQDICPVK10rrSiIY Peak Gr.30mmHg [id number] LEFT VENTRICLE The left ventricle is normal size. There is mild to moderate concentric left ventricular hypertrophy. The left ventricular function is normal. The left ventricular ejection fraction is within the normal range. There is normal LV segmental wall motion. Transmitral Doppler flow pattern is Grade I-abnormal relaxation pattern. RIGHT VENTRICLE The right ventricle is normal size. There is normal right ventricular wall thickness. The right ventricular systolic function is normal. ATRIA The left atrium is mildly dilated. The right atrium size is normal. AORTIC VALVE The aortic valve is moderately sclerotic. There is mild valvular aortic stenosis. MITRAL VALVE The mitral valve is moderately thickened. TRICUSPID VALVE There is mild pulmonary hypertension. GREAT VESSELS The aortic root is normal in size. <Conclusion> The left ventricle is normal size. There is mild to moderate concentric left ventricular hypertrophy. The left ventricular function is normal. The left ventricular ejection fraction is within the normal range. There is normal LV segmental wall motion. Transmitral Doppler flow pattern is Grade I-abnormal relaxation pattern. The aortic valve is moderately sclerotic. There is mild valvular aortic stenosis. There is mild pulmonary hypertension.
--- NOTE | 2017-02-18 19:09 | DS ---
A 61-year-old female came in with abdominal pain, found to have constipation. She did have a good sandrine wel movement day of discharge with relief of her pain completely. She was also found to have urinary tract infections. Culture sensitivity called in, it was unavailable. She otherwise feels fine. No nausea, no vomiting. She is hemodynamically stable. The patient takes also some psych medications for her depression and advised to take it. Also, she takes HIV medications and advised to continue a ll her previous medication and follow with her primary doctor. The patient was seen by Dr. Sushil finley r her depression and consulted also by Dr Whitten, gastroenterology; Dr. Srinivasan saw the patient as c overing physicians. She also seen by psychiatry for followup. She also had an echocardiogram for he r chest pain, which seems okay otherwise. The patient is stable, will be discharged home to follow u p with his primary doctor in a week and follow with me in a week and follow up with her other primary doctor after that. PHYSICAL EXAMINATION: Day of discharge: VITAL SIGNS: Temperature is 97.9, heart rate 57, blood pressure is 155/90, respirations 18, saturati on 98% on room air. HEAD AND NECK: Normal. No JVD, no thyromegaly. CHEST: Clear, good entry. CARDIAC: First sound, second sound normal. ABDOMEN: Soft, nontender. EXTREMITIES: No edema. NEUROLOGIC: Normal. LABORATORY DATA: A 7.9 white count, hemoglobin 12.5, hematocrit 34.2, platelets 234. Chemistry: So dium 139, potassium 3.6, chloride 106, bicarb 26, BUN 13, creatinine 0.9. Liver function test is sli ghtly elevated at 84. AST, ALT is 97, normal alk phos. Total protein 7.9, which is normal. Amylase slightly elevated but lipase is normal. While she was in the hospital, she had the following tests: 1. She had a CT abdomen and pelvis which showed constipations, no evidence of diverticulitis, and no intra-abdominal pathology. 2. She also had an echocardiogram. Dr. Del Rosario saw him. ____ by Dr. Srinivasan to rule out pulmonary hypertension and it was normal LV function, normal size, concentric LVH, and there is aortic valve mo derately sclerotic with mild valvular aortic stenosis. There is mild pulmonary hypertension, probabl y secondary to left-sided increased intraventricular pressure. We will continue current treatment. DISCHARGE DIAGNOSES: 1. Abdominal pain, probably due to constipation, gastritis. 2. Mild aortic stenosis. 3. Hypertension. 4. History of depression. 5. Possible history of human immunodeficiency virus. 6. Urinary tract infection. PLAN: Discharge her on ____ HIV medicine, lisinopril 20 mg p.o. daily, Bactrim-DS 1 tablet b.i.d., P rotonix 40 mg once a day, Colace 100 b.i.d., Dulcolax 5 mg b.i.d. p.r.n., Truvada 200 mg - 300 mg p.o . daily, trazodone, melatonin and latanoprost eyedrops once a day, Neurontin 100 t.i.d., Lexapro 10 m g once a day. Follow up with primary care doctor. Follow up with me in the office in 1 week. The p atient advised to follow up with the sleep study with Dr. Srinivasan. Continue current management. Harsh Early MD cc: [phone] TT: 02/18/2017 19:08:50
== END 2017-02-17 13:57 | disposition home or self-care (01) ==
LOC: ED 02:21 → ERH 05:34 → MERGE 05:34 → ERH 06:13 → 5RNO 06:56
PROVIDERS: ADMIT Internal Medicine; ATTEND Internal Medicine
DX: K59.00 Constipation, unspecified (principal); K29.70 Gastritis, unspecified, without bleeding; I35.0 Nonrheumatic aortic (valve) stenosis; I10 Essential (primary) hypertension; F32.89 Other specified depressive episodes; Z21 Asymptomatic human immunodeficiency virus [HIV] infection status; N39.0 Urinary tract infection, site not specified; B96.20 Unspecified Escherichia coli [E. coli] as the cause of diseases classified elsewhere; F51.02 Adjustment insomnia; I69.351 Hemiplegia and hemiparesis following cerebral infarction affecting right dominant side; K31.84 Gastroparesis; Z79.899 Other long term (current) drug therapy; Z90.49 Acquired absence of other specified parts of digestive tract; R11.2 Nausea with vomiting, unspecified; G47.30 Sleep apnea, unspecified; B19.20 Unspecified viral hepatitis C without hepatic coma
CPT/HCPCS: 36415; 74176; 80053; 81001; 82150; 82550; 83615; 83690; 84484; 85025; 85610; 85730; 87040; 87086; 93005; 93306; 96365; 96366; 96372; 96375; 96376; 99284; C9113; G0378; J0696; J1650; J2212; J2270; J2405; J7040